=== PATIENT | male | born 1980 | race Two or more races ===

== ENCOUNTER 2016-09-27 20:33 | Emergency (ER) | payer SELFPAY ==
[~2016-09-27] VITALS: Ht 165.1 cm; Wt 80.0 kg
[2016-09-27 20:37] VITALS: Ht 165.1 cm; Wt 80.0 kg
--- NOTE | 2016-09-27 21:15 | ERD ---
ER Documentation Chief Complaint Date/Time DATE: 09/27/16 TIME: 21:13 Chief Complaint S/P FALL LEFT KNEE AND HIP PAIN NO K.O AND NO HEAD INJURY HPI 35-year-old male presents here in emergency department for complaints of left knee pain and left hip pain after falling today outward. Patient landed on the left knee, describes the pain as throbbing pain, 6/10 scale, is worse upon movement of the left knee on the left hip area. Patient is able to ambulate on it. Patient denies any numbness or tingling. Patient denies any deformity. Patient has an abrasion on the left knee. Patient did not take any medications for pain. ROS All systems reviewed and are negative except as per history of present illness. Medications Home Meds Active Scripts Tramadol HCl (Tramadol HCl) 50 Mg Tablet, 50 MG PO Q6 Y for SEVERE PAIN LEVEL 7- 10, #20 TAB Prov:JOE VILLEGAS FUND MANAGER 09/27/16 Ibuprofen* (Motrin*) 600 Mg Tab, 600 MG PO Q6H Y for PAIN AND OR ELEVATED TEMP, #30 TAB Prov:JOE VILLEGAS [employer]D MANAGER 09/27/16 Reported Medications [none] Unknown Strength No Conflict Check 09/27/16 Allergies Allergies: Coded Allergies: No Known Allergy (Unverified , 09/27/16) PMhx/Soc Medical and Surgical Hx: pt denies Medical Hx, pt denies Surgical Hx History of Surgery: No Anesthesia Reaction: No Hx Neurological Disorder: No Hx Respiratory Disorders: No Hx Cardiac Disorders: No Hx Psychiatric Problems: No Hx Miscellaneous Medical Probl: No Hx Alcohol Use: No Hx Substance Use: No Hx Tobacco Use: No Smoking Status: Never smoker FmHx Family History: No coronary disease, No diabetes, No other Physical Exam Vitals Vital Signs Date Time Temp Pulse Resp B/P Pulse Ox O2 Delivery O2 Flow Rate FiO2 09/27/16 23:12 95 118/74 97 Room Air 09/27/16 20:37 97.2 111 20 126/67 96 Physical Exam GENERAL: The patient is well developed and appropriate for usual state of health, in no apparent distress. CHEST: Clear to auscultation bilaterally. There are no rales, wheezes or rhonchi. HEART: Regular rate and rhythm. No murmurs, clicks, rubs or gallops. No S3 or S4. ABDOMEN: Soft, nontender and nondistended. Good bowel sounds. No rebound or guarding. No gross peritonitis. No gross organomegaly or masses. No Maguire sign or McBurney point tenderness. BACK: No midline or flank tenderness. EXTREMITIES: Noted abrasion the left knee, able to do full range of motion without any restriction, mild swelling noted. Able to do full range of motion of the left hip without any restriction but with pain. No deformity noted. Equal pulses bilaterally. Full range of motion about the joints of the body. Grossly neurovascularly intact. NEURO: Alert and oriented. Cranial nerves 2-12 intact. Motor strength in all 4 extremities with 5/5 strength. Sensation grossly intact. Normal speech and gait. SKIN: There is no apparent rash or petechia. The skin is warm and dry. HEMATOLOGIC AND LYMPHATIC: There is no evidence of excessive bruising or lymphedema. No gross cervical, axillary, or inguinal lymphadenopathy. Results 24 hrs Current Medications Medications (Trade) Dose Ordered Sig/Joey Route PRN Reason Start Time Stop Time Status Last Admin Dose Admin Ibuprofen (Motrin) 600 mg ONCE ONCE PO 09/27/16 21:30 09/27/16 21:31 DC 09/27/16 21:17 Patient was given medication for pain here in emergency department, after treatment, patient verbalized feeling much better. Patient's pain is improved. PROCEDURE: XR Knee. CLINICAL INDICATION: Post traumatic left knee pain, fall onto patella TECHNIQUE: AP, lateral and tunnel views of the left knee were obtained. COMPARISON: None. FINDINGS: No fracture or osseous lesion is identified. There is no evidence for dislocation. Mineralization is within normal limits. Joint spaces are preserved. No evidence of effusion or soft tissue swelling is identified. RPTAT:HJJR IMPRESSION: Unremarkable left knee series. Physician Selene Date Time Electronically viewed and signed by Physician Selene on 09/27/2016 22:37 JR/ CC: JOE VILLEGAS NP After receiving patients xray report, an Aj wrap was applied on the patients right knee. After application of the Aj wrap, patient has intact sensation and circulation on distal area of the affected joint. Patient does not complain of numbness or tingling after application of the Aj wrap. Patient tolerated procedure well. Crutches was given to use afterwards. Procedures/MDM Medical Decision Making: Patient's pain is most likely consistent with a left knee contusion and left hip strain. There is no suspicion for neurovascular compromise. Patient has intact sensation and circulation of the affected extremity. There is low suspicion for septic arthritis. Patient does not have any fever. Radiology exams of the affected area does not show any fracture or dislocation. Disposition: Home. Patient is given prescription for ibuprofen for pain, tramadol for severe pain. Patient was advised to elevate the affected area and apply ice on affected area. Patient was advised that if symptoms are worse, numbness, tingling, high fever, unable to move joint, worsening symptoms, to return to emergency department immediately. Otherwise, patient is advised to follow up with the primary care doctor in 5-7 days for reevaluation of symptoms. Departure Diagnosis: Primary Impression: Knee contusion Encounter type: initial encounter Laterality: left Qualified Code: S80.02XA - Contusion of left knee, initial encounter Additional Impression: Hip strain Encounter type: initial encounter Laterality: left Qualified Code: S76.012A - Hip strain, left, initial encounter Condition: Stable Patient Instructions: Hip Strain, Reducing Knee Pain and Swelling Additional Instructions: Patient is given prescription for ibuprofen for pain, tramadol for severe pain. Patient was advised to elevate the affected area and apply ice on affected area. Patient was advised that if symptoms are worse, numbness, tingling, high fever, unable to move joint, worsening symptoms, to return to emergency department immediately. Otherwise, patient is advised to follow up with the primary care doctor in 5-7 days for reevaluation of symptoms. JOE VILLEGAS NP September 27, 2016 21:15
[2016-09-27] MEDS ORDERED: IBUPROFEN 600 MG TAB PO ONE (21:30)
--- NOTE | 2016-09-27 22:37 | RADRPT ---
PROCEDURE: XR Knee. CLINICAL INDICATION: Post traumatic left knee pain, fall onto patella TECHNIQUE: AP, lateral and tunnel views of the left knee were obtained. COMPARISON: None. FINDINGS: No fracture or osseous lesion is identified. There is no evidence for dislocation. Mineralization is within normal limits. Joint spaces are preserved. No evidence of effusion or soft tissue swelli ng is identified. RPTAT:HJJR IMPRESSION: Unremarkable left knee series. Physician Selene Date Time Electronically viewed and signed by Physician Selene on 09/27/2016 22:37 JR/
[2016-09-27] MEDS ORDERED: IBUP-1542 PO (23:02)
[2016-09-27] MEDS ORDERED: TRAM50TA2 PO (23:02)
[2016-09-27 23:12] VITALS: BP 118/74; PULSE 95
== END 2016-09-27 23:56 | disposition home or self-care (01) ==
LOC: FTE 20:33
DX: S80.02XA Contusion of left knee, initial encounter (principal); S76.012A Strain of muscle, fascia and tendon of left hip, initial encounter; W18.39XA Other fall on same level, initial encounter; Y92.9 Unspecified place or not applicable
CPT/HCPCS: 73562